=== PATIENT | male | born 1980 ===

== ENCOUNTER 2018-07-02 11:31 | Outpatient (CLI) | payer MEDICAID | END 2018-07-02 11:32 | disposition home or self-care (01) | DRG 556 | LOC: CONVCARE 11:31 | PROVIDERS: ATTEND Orthopaedic Surgery | DX: M79.604 Pain in right leg (principal); S72.21XD Displaced subtrochanteric fracture of right femur, subsequent encounter for closed fracture with routine healing | CPT/HCPCS: 73552 ==

== ENCOUNTER → 2018-08-13 | Outpatient (CLI) | payer MEDICAID | END | disposition home or self-care (01) | DRG 561 | LOC: CONVCARE 11:45 | PROVIDERS: ATTEND Orthopaedic Surgery | DX: S72.141D Displaced intertrochanteric fracture of right femur, subsequent encounter for closed fracture with routine healing (principal) | CPT/HCPCS: 73552 ==